=== PATIENT | female | born 1955 | race Two or more races ===

== ENCOUNTER 2023-12-20 12:38 | Emergency (ER) | payer MEDICARE ==
[~2023-12-20] VITALS: Ht 162.6 cm; Wt 68.0 kg
[2023-12-20 12:51] VITALS: O2SAT 97
[2023-12-20] MEDS ORDERED: METOCLOPRAMIDE HCL 10MG/2ML VIAL IV ONE (13:30)
[2023-12-20] MEDS ORDERED: SODIUM CHLORIDE 0.9% 1,000 ML IV ONE (13:30)
[2023-12-20] MEDS ORDERED: DIPHENHYDRAMINE 50MG/ML VIAL IV ONE (13:30)
[2023-12-20 14:22] LABS: PROTHROMBIN TIME 10.4 sec (9.6-11.0)
[2023-12-20 14:24] LABS: BASOPHILS % 0.5 % (0.0-2.0); HEMATOCRIT. 45.8 % (36.0-48.0); HEMOGLOBIN. 15.5 g/dL (12.0-16.0); LYMPHOCYTES % 22.8 % (20.0-50.0); MEAN CORPUSCULAR HEMOGLOBIN 31.3 pg (28.0-32.0); MEAN CORPUSCULAR HGB CONC 33.9 g/dL (31.0-37.0); MEAN CORPUSCULAR VOLUME 92.6 fL (81.0-99.0); MEAN PLATELET VOLUME 8.7 fl (7.4-10.4); MONOCYTES % 12.2 % (2.0-8.0); NEUTROPHILS % 64.5 % (40.0-76.0); PLATELET 279 x1000/uL (130-400); RED BLOOD CELL COUNT 4.95 mill/uL (4.2-5.4); WHITE BLOOD COUNT 6.3 x1000/uL (4.5-11.0)
[2023-12-20 14:25] LABS: ALANINE AMINOTRANSFERASE 91 IU/L (10-49); ALBUMIN 4.4 g/dL (3.2-4.8); ASPARTATE AMINOTRANSFERASE 109 IU/L (<34); BILIRUBIN TOTAL 0.4 mg/dL (0.1-1.0); CALCIUM 9.2 mg/dL (8.7-10.4); CARBON DIOXIDE 21 mEq/L (21-32); CHLORIDE 99 mEq/L (98-107); GLUCOSE 98 mg/dL (70-105); POTASSIUM 3.4 mEq/L (3.5-5.1); PROTEIN TOTAL 8.3 g/dL (6.0-8.3); SODIUM 132 mEq/L (136-145); UREA NITROGEN BLOOD 20 mg/dL (9-23)
[2023-12-20] MEDS ORDERED: POTASSIUM CHLORIDE 20MEQ TABLET SR PO NR (15:00)
[2023-12-20] MEDS ORDERED: DIPHENHYDRAMINE 50MG/ML VIAL IV NR (15:09)
[2023-12-20] MEDS ORDERED: METOCLOPRAMIDE HCL 10MG/2ML VIAL IV NR (15:10)
[2023-12-20] MEDS ORDERED: ONDA4TAB50 MT (17:24)
[2023-12-20] MEDS ORDERED: NIRM1TAB PO (17:24)
[2023-12-20 18:34] VITALS: BP 122/78; PULSE 69; RESP 25; TEMP 98
== END 2023-12-20 18:43 | disposition home or self-care (01) ==
LOC: ER 12:38 → EDBEDREQ 13:38 → CANBEDREQ 17:29 → ER 18:43
DX: U07.1 COVID-19 (principal); E86.0 Dehydration; E87.6 Hypokalemia; Z88.0 Allergy status to penicillin
CPT/HCPCS: 99285; 96374; 70450; 71045; 96361; 96375; 87426; 80053; 83605; 85025; 85610; 87040; 87804 ×2; 36415; J1200; J2765; J7030